=== PATIENT | female | born 1965 | race Caucasian/White ===

== ENCOUNTER → 2016-09-03 | Outpatient (CLI) | payer BC ==
--- NOTE | 2016-09-03 15:49 | REPMRS ---
Patient History The patient states she had a clinical breast exam in 09/08 No known family history of cancer. Retro-pectoral saline implants in both breasts. Digital Woman Screen Mammo: September 03, 2016 - Exam #: [id number] Bilateral CC and MLO view(s) were taken. Technologist: Beverly Mosquera, Technologist Prior study comparison: August 23, 2015, digital woman screen mammo performed at [facility] to [facility]. June 16, 2014, digital woman screen mammo performed at [facility] to [facility]. FINDINGS: There are scattered fibroglandular densities. There is a fairly symmetric fibroglandular pattern in both breasts. There has been no interval development of masses, areas of architectural distortion or clusters of microcalcifications typical of malignancy. ASSESSMENT: BI-RADS/ACR category 2 mammogram. Benign finding(s). Recommendation Routine screening mammogram of both breasts in 1 year (for women over age 40). This mammogram was interpreted with the aid of an FDA-approved computer-aided dectection system. Electronically Signed By: Robert Gloria MD 09/03/16 1219
== END ==
LOC: M WHC 14:28
PROVIDERS: ATTEND Nurse Practitioner Women's Health
DX: Z12.31 Encounter for screening mammogram for malignant neoplasm of breast (principal)

== ENCOUNTER → 2016-09-03 | Outpatient (REF) | payer BC | LOC: M SFHCWAGY 14:46 | PROVIDERS: ATTEND Nurse Practitioner Women's Health | DX: Z12.4 Encounter for screening for malignant neoplasm of cervix (principal) ==

== ENCOUNTER → 2016-10-21 | Outpatient (REF) | payer BC ==
[2016-10-21 11:25] LABS: BASO % 0.3 % (0.0-1.0); EOS # 0.2 K/mm3 (0.0-0.50); EOS % 4.9 % (0.0-3.0); LARGE UNSTAINED CELL # 0.1 K/mm3 (0.0-0.4); LARGE UNSTAINED CELL % 2.9 % (0.0-4.0); LYMPH % 23.2 % (24.0-44.0); MEAN CORPUSCULAR HEMOGLOBIN 33.1 pg (27.0-33.0); MEAN CORPUSCULAR HGB CONC 34.8 g/dl (32.0-36.5); MEAN CORPUSCULAR VOLUME 95.1 fl (80.0-96.0); MONO # 0.3 K/mm3 (0.0-0.8); MONO % 6.6 % (0.0-5.0); NEUTROPHILS # 2.8 K/mm3 (1.8-7.7); NEUTROPHILS % 62.1 % (36.0-66.0); PLATELET COUNT, AUTOMATED 265 k/mm3 (150-450); RED CELL DISTRIBUTION WIDTH 12.7 % (11.5-14.5); WHITE BLOOD COUNT 4.5 K/mm3 (4.0-10.0)
[2016-10-21 11:48] LABS: ALBUMIN 3.6 GM/DL (3.2-5.2); ALBUMIN/GLOBULIN RATIO 1.29 (1.00-1.93); ALKALINE PHOSPHATASE 74 U/L (45-117); ALT/SGPT 23 U/L (12-78); ANION GAP 8 MEQ/L (8-16); AST/SGOT 27 U/L (15-37); BILIRUBIN,TOTAL 1.3 MG/DL (0.2-1.0); BLOOD UREA NITROGEN 13 MG/DL (7-18); CALCIUM LEVEL 9.3 MG/DL (8.5-10.1); CARBON DIOXIDE LEVEL 27 MEQ/L (21-32); CHLORIDE LEVEL 109 MEQ/L (98-107); CHOLESTEROL LEVEL 170 MG/DL (<200); CREATININE FOR GFR 0.61 MG/DL (0.55-1.02); FREE T4 1.41 NG/DL (0.76-1.46); GLOMERULAR FILTRATION RATE > 60.0 (>51); GLUCOSE, FASTING 80 MG/DL (70-105); POTASSIUM SERUM 4.1 MEQ/L (3.5-5.1); SODIUM LEVEL 144 MEQ/L (136-145); TOTAL PROTEIN 6.4 GM/DL (6.4-8.2); TRIGLYCERIDES LEVEL 91 MG/DL (<150)
== END ==
LOC: M LABDRAW1 10:45
PROVIDERS: ATTEND Family Medicine
DX: K21.9 Gastro-esophageal reflux disease without esophagitis (principal); Z13.220 Encounter for screening for lipoid disorders; Z13.29 Encounter for screening for other suspected endocrine disorder; E89.0 Postprocedural hypothyroidism

== ENCOUNTER → 2017-09-04 | Outpatient (REF) | payer BC | LOC: M SFHCWAGY 15:22 | DX: Z12.4 Encounter for screening for malignant neoplasm of cervix (principal) | CPT/HCPCS: G0123 ==

== ENCOUNTER → 2017-09-04 | Outpatient (CLI) | payer BC | LOC: M WHC 14:44 | DX: Z12.31 Encounter for screening mammogram for malignant neoplasm of breast (principal); Z78.0 Asymptomatic menopausal state; Z98.82 Breast implant status ==

== ENCOUNTER → 2017-10-01 | Outpatient (CLI) | payer BC | LOC: M WHC 10:54 | DX: D25.9 Leiomyoma of uterus, unspecified (principal) | CPT/HCPCS: 76830 ==

== ENCOUNTER → 2017-10-05 | Outpatient (REF) | payer BC | LOC: M SFHCWAGY 09:44 | DX: N95.0 Postmenopausal bleeding (principal) | CPT/HCPCS: 88304 ==

== ENCOUNTER → 2018-03-30 | Outpatient (REF) | payer BC ==
[2018-03-30 14:41] LABS: BASO % 0.2 % (0.0-1.0); EOS # 0.3 10^3/uL (0.0-0.50); EOS % 6.4 % (0.0-3.0); HEMOGLOBIN 15.9 g/dl (12.0-15.5); IMMATURE GRANULOCYTE % 0.2 % (0-3.0); LYMPH # 1.3 10^3/uL (1.5-4.5); LYMPH % 27.5 % (24.0-44.0); MEAN CORPUSCULAR HEMOGLOBIN 32.1 pg (27.0-33.0); MEAN CORPUSCULAR HGB CONC 35.3 g/dl (32.0-36.5); MEAN CORPUSCULAR VOLUME 90.7 fl (80.0-96.0); MONO # 0.5 10^3/uL (0.0-0.8); MONO % 9.5 % (0.0-5.0); NEUTROPHILS # 2.7 10^3/uL (1.8-7.7); NEUTROPHILS % 56.2 % (36.0-66.0); PLATELET COUNT, AUTOMATED 281 10^3/uL (150-450); RED BLOOD COUNT 4.96 10^6/uL (4.00-5.40); RED CELL DISTRIBUTION WIDTH 12.2 % (11.5-14.5); WHITE BLOOD COUNT 4.7 10^3/uL (4.0-10.0)
[2018-03-30 14:55] LABS: ALBUMIN 4.2 GM/DL (3.2-5.2); ALBUMIN/GLOBULIN RATIO 1.56 (1.00-1.93); ALKALINE PHOSPHATASE 94 U/L (45-117); ALT/SGPT 21 U/L (12-78); ANION GAP 9 MEQ/L (8-16); AST/SGOT 21 U/L (7-37); BLOOD UREA NITROGEN 16 MG/DL (7-18); CARBON DIOXIDE LEVEL 30 MEQ/L (21-32); CHLORIDE LEVEL 103 MEQ/L (98-107); CHOLESTEROL LEVEL 204 MG/DL (<200); CHOLESTEROL RISK RATIO 2.794 (<5); CREATININE FOR GFR 0.59 MG/DL (0.55-1.30); FREE T4 1.38 NG/DL (0.76-1.46); GLOMERULAR FILTRATION RATE > 60.0 (>51); GLUCOSE, FASTING 77 MG/DL (70-100); HDL CHOLESTEROL 73 MG/DL (>40); LDL CHOLESTEROL 111 MG/DL (<100); NON-HDL-C 131 MG/DL; POTASSIUM SERUM 4.2 MEQ/L (3.5-5.1); SODIUM LEVEL 142 MEQ/L (136-145); THYROID STIMULATING HORMONE 0.156 uIU/ML (0.358-3.740); TOTAL PROTEIN 6.9 GM/DL (6.4-8.2); TRIGLYCERIDES LEVEL 102 MG/DL (<150)
== END ==
LOC: M LABDRAW1 13:42
DX: E89.0 Postprocedural hypothyroidism (principal); Z13.220 Encounter for screening for lipoid disorders; Z13.0 Encounter for screening for diseases of the blood and blood-forming organs and certain disorders involving the immune mechanism; Z13.29 Encounter for screening for other suspected endocrine disorder
CPT/HCPCS: 84443

== ENCOUNTER → 2018-04-06 | Outpatient (REF) | payer BC ==
[2018-04-06 13:55] LABS: ALBUMIN 4.1 GM/DL (3.2-5.2); ALBUMIN/GLOBULIN RATIO 1.28 (1.00-1.93); ALKALINE PHOSPHATASE 100 U/L (45-117); ALT/SGPT 23 U/L (12-78); ANION GAP 8 MEQ/L (8-16); AST/SGOT 15 U/L (7-37); BILIRUBIN,DIRECT 0.4 MG/DL (0.0-0.2); BILIRUBIN,TOTAL 2.8 MG/DL (0.2-1.0); BLOOD UREA NITROGEN 16 MG/DL (7-18); CALCIUM LEVEL 9.8 MG/DL (8.5-10.1); CARBON DIOXIDE LEVEL 29 MEQ/L (21-32); CHLORIDE LEVEL 104 MEQ/L (98-107); CREATININE FOR GFR 0.72 MG/DL (0.55-1.30); FREE T4 1.35 NG/DL (0.76-1.46); GAMMA GLUTAMYLTRANSPEPTIDASE 24 U/L (5-55); GLOMERULAR FILTRATION RATE > 60.0 (>51); GLUCOSE, FASTING 79 MG/DL (70-100); SODIUM LEVEL 141 MEQ/L (136-145); THYROID STIMULATING HORMONE 0.268 uIU/ML (0.358-3.740); TOTAL PROTEIN 7.3 GM/DL (6.4-8.2)
[2018-04-07 10:15] LABS: HEPATITIS B SURFACE ANTIGEN NEGATIVE (NEGATIVE)
[2018-04-07 10:42] LABS: HEPATITIS B CORE ANTIBODY IGM NEGATIVE (NEGATIVE); HEPATITIS C VIRUS ABY INDEX 0.1 INDEX (<0.8)
[2018-04-07 10:45] LABS: HEPATITIS A ANTIBODY IGM NEGATIVE (NEGATIVE)
== END ==
LOC: M LABDRAW1 12:39
DX: R94.5 Abnormal results of liver function studies (principal); I10 Essential (primary) hypertension; E89.0 Postprocedural hypothyroidism
CPT/HCPCS: 82248

== ENCOUNTER → 2018-04-14 | Outpatient (CLI) | payer BC | LOC: M RAD 06:19 | DX: R94.5 Abnormal results of liver function studies (principal); K76.89 Other specified diseases of liver | CPT/HCPCS: 76705 ==

== ENCOUNTER → 2018-05-10 | Outpatient (REF) | payer BC ==
[2018-05-10 12:39] LABS: ALBUMIN 4.1 GM/DL (3.2-5.2); ALT/SGPT 23 U/L (12-78); BILIRUBIN,TOTAL 2.7 MG/DL (0.2-1.0); BLOOD UREA NITROGEN 18 MG/DL (7-18); CALCIUM LEVEL 9.5 MG/DL (8.5-10.1); CARBON DIOXIDE LEVEL 30 MEQ/L (21-32); CHLORIDE LEVEL 102 MEQ/L (98-107); CREATININE FOR GFR 0.66 MG/DL (0.55-1.30); FREE T4 1.27 NG/DL (0.76-1.46); GLOMERULAR FILTRATION RATE > 60.0 (>51); GLUCOSE, FASTING 70 MG/DL (70-100); POTASSIUM SERUM 3.7 MEQ/L (3.5-5.1); SODIUM LEVEL 141 MEQ/L (136-145); THYROID STIMULATING HORMONE 0.181 uIU/ML (0.358-3.740); TOTAL PROTEIN 7.3 GM/DL (6.4-8.2)
== END ==
LOC: M LABDRAW1 11:52
PROVIDERS: ATTEND Physician Assistant
DX: R94.5 Abnormal results of liver function studies (principal); E89.0 Postprocedural hypothyroidism

== ENCOUNTER → 2018-08-27 | Outpatient (CLI) | payer BC ==
[2018-08-27 19:34] LABS: BLOOD UREA NITROGEN 19 MG/DL (7-18); CALCIUM LEVEL 9.3 MG/DL (8.5-10.1); CARBON DIOXIDE LEVEL 28 MEQ/L (21-32); CHLORIDE LEVEL 106 MEQ/L (98-107); CREATININE FOR GFR 0.72 MG/DL (0.55-1.30); FREE T4 1.26 NG/DL (0.76-1.46); GLOMERULAR FILTRATION RATE > 60.0 (>51); GLUCOSE, FASTING 83 MG/DL (70-100); POTASSIUM SERUM 3.9 MEQ/L (3.5-5.1); SODIUM LEVEL 140 MEQ/L (136-145)
== END ==
LOC: M WUC 17:58
PROVIDERS: ATTEND Physician Assistant
DX: E89.0 Postprocedural hypothyroidism (principal); I10 Essential (primary) hypertension

== ENCOUNTER → 2018-09-30 | Outpatient (CLI) | payer BC ==
--- NOTE | 2018-09-30 16:56 | REPMRS ---
Patient History The patient states she had a clinical breast exam in 09/2018. Patient is postmenopausal. No known family history of cancer. Retro-pectoral saline implants in both breasts, 2005. No Hormone Replacement Therapy 3D TOMOSYNTHESIS WAS PERFORMED. Digital Woman Screen Mammo: September 30, 2018 - Exam #: [id number] Bilateral CC and MLO view(s) were taken. Technologist: Alejandra Yip, Technologist Prior study comparison: September 04, 2017, digital woman screen mammo performed at [facility]. September 03, 2016, digital woman screen mammo performed at [facility]. FINDINGS: There are scattered fibroglandular densities. There has been no change in the appearance of the mammogram from the prior studies. There is a mild amount of residual fibroglandular tissue which is fairly symmetric. There is no interval development of dominant mass, architectural distortion, or clustered microcalcification suggestive of malignancy. Assessment: BI-RADS/ACR category 1 mammogram. Negative Mammogram. Recommendation Routine screening mammogram in 1 year (for women over age 40). This mammogram was interpreted with the aid of an FDA-approved computer-aided dectection system. Electronically Signed By: Robert Gloria MD 09/30/18 2194
== END ==
LOC: M WHC 15:22
PROVIDERS: ATTEND Nurse Practitioner Women's Health
DX: Z12.31 Encounter for screening mammogram for malignant neoplasm of breast (principal); Z78.0 Asymptomatic menopausal state; Z98.82 Breast implant status

== ENCOUNTER → 2019-02-03 | Outpatient (CLI) | payer BC ==
--- NOTE | 2019-02-05 08:06 | EEG ---
DATE OF PROCEDURE: 02/03/2019 REFERRING PHYSICIAN: Dr. Johnson DIAGNOSIS: MS. EEG NUMBER: [id number] HISTORY: The patient is a 54-year-old woman with history of migraines, hypertension and psoriasis. EEG was done to rule out MS, according to notes sent to our office. She is currently taking Synthroid, losartan, amitriptyline, ibuprofen etc. TECHNICAL DESCRIPTION: This digital EEG was recorded by 21-scalp, ear, and two EKG electrodes and was reviewed in bipolar and referential montages following reformatting in 10-20 international electrode placement system. INTERPRETATION: The patient was noted to be in awake and drowsy states during this EEG. Resting awake background rhythm consisted of well-formed posterior dominant rhythm with anterior/posterior gradient comprising of 11 Hz alpha activity measuring 15-60 microvolts in amplitude which was symmetric and reactive to eye opening. Attenuation of posterior dominant rhythm was seen during transition into drowsiness. Stage I and II sleep were reviewed and were symmetric bilaterally. Hyperventilation with good effort elicited mild theta slowing of background rhythm. Photic stimulation at 3-30 Hz elicited symmetric photic driving especially at mid frequencies. EKG revealed normal sinus rhythm. No focal, lateralizing, or epileptiform abnormalities were seen. No relevant clinical activity was noted. CONCLUSION: This EEG in awake, drowsy states, stage I and II sleep is within normal limits.
== END ==
LOC: M SLEEP 14:52
PROVIDERS: ATTEND Psychiatry & Neurology Neurology
DX: G35 Multiple sclerosis (principal)

== ENCOUNTER → 2019-11-18 | Outpatient (CLI) | payer BC ==
--- NOTE | 2019-11-18 10:30 | REPMRS ---
Patient History The patient states she has not had a clinical breast exam in over a year. No known family history of cancer. Retro-pectoral saline implants in both breasts, 2005. No Hormone Replacement Therapy Digital Woman Screen Mammo: November 18, 2019 - Exam #: [id number] Bilateral CC and MLO view(s) were taken. Technologist: Bailee Rouse, Technologist Prior study comparison: September 30, 2018, bilateral digital woman screen mammo performed at [facility]. September 04, 2017, digital woman screen mammo performed at [facility]. September 03, 2016, digital woman screen mammo performed at [facility]. FINDINGS: There are scattered fibroglandular densities. The visualized implant margins are smooth. Breast parenchymal density pattern is essentially symmetric. No dominant mass, grouped microcalcification, or architectural distortion is evident on either side. 3-D tomosynthesis shows no additional findings. No significant changes when compared with prior studies. Assessment: BI-RADS/ACR category 2 mammogram. Benign Findings. Recommendation Routine screening mammogram of both breasts in 1 year (for women over age 40). This patient's Lifetime Breast Cancer RIsk is estimated at 8.4 %. This mammogram was interpreted with the aid of an FDA-approved computer-aided dectection system. Electronically Signed By: William Murphy MD 11/18/19 0750
== END ==
LOC: M WHC 09:45
PROVIDERS: ATTEND Nurse Practitioner Women's Health
DX: Z12.31 Encounter for screening mammogram for malignant neoplasm of breast (principal)

== ENCOUNTER → 2019-12-15 | Outpatient (CLI) | payer BC ==
[2019-12-15 07:41] LABS: BASO % 0.2 % (0.0-1.0); EOS # 0.2 10^3/uL (0.0-0.5); HEMATOCRIT 43.4 % (36.0-47.0); HEMOGLOBIN 15.3 g/dl (12.0-15.5); LYMPH # 1.5 10^3/uL (1.5-5.0); LYMPH % 31.2 % (24.0-44.0); MEAN CORPUSCULAR HEMOGLOBIN 31.9 pg (27.0-33.0); MEAN CORPUSCULAR HGB CONC 35.3 g/dl (32.0-36.5); MEAN CORPUSCULAR VOLUME 90.4 fl (80.0-96.0); MONO # 0.4 10^3/uL (0.0-0.8); MONO % 8.4 % (0.0-5.0); NEUTROPHILS # 2.7 10^3/uL (1.5-8.5); PLATELET COUNT, AUTOMATED 257 10^3/uL (150-450); WHITE BLOOD COUNT 4.8 10^3/uL (4.0-10.0)
[2019-12-15 08:08] LABS: ALBUMIN 3.8 GM/DL (3.2-5.2); ALT/SGPT 21 U/L (12-78); BILIRUBIN,TOTAL 1.5 MG/DL (0.2-1.0); BLOOD UREA NITROGEN 9 MG/DL (7-18); CALCIUM LEVEL 9.5 MG/DL (8.5-10.1); CARBON DIOXIDE LEVEL 26 MEQ/L (21-32); CHLORIDE LEVEL 111 MEQ/L (98-107); CHOLESTEROL LEVEL 178 MG/DL (<200); CHOLESTEROL RISK RATIO 2.507 (<5); CREATININE FOR GFR 0.67 MG/DL (0.55-1.30); FREE T4 1.18 NG/DL (0.76-1.46); GLOMERULAR FILTRATION RATE > 60.0 (>51); GLUCOSE, FASTING 97 MG/DL (70-100); HDL CHOLESTEROL 71 MG/DL (>40); LDL CHOLESTEROL 89 MG/DL (<100); NON-HDL-C 107 MG/DL; SODIUM LEVEL 144 MEQ/L (136-145); TOTAL PROTEIN 6.6 GM/DL (6.4-8.2); TRIGLYCERIDES LEVEL 92 MG/DL (<150)
== END ==
LOC: M LAB 06:44
PROVIDERS: ATTEND Family Medicine
DX: E89.0 Postprocedural hypothyroidism (principal)

== ENCOUNTER → 2020-04-17 | Outpatient (CLI) | payer SELFPAY | LOC: M LABSMTC 12:57 | PROVIDERS: ATTEND Pediatrics | DX: Z20.828 Contact with and (suspected) exposure to other viral communicable diseases (principal) ==

== ENCOUNTER → 2020-04-30 | Outpatient (CLI) | payer SELFPAY | LOC: M LABSMTC 13:59 | PROVIDERS: ATTEND Pediatrics | DX: Z20.828 Contact with and (suspected) exposure to other viral communicable diseases (principal) ==

== ENCOUNTER → 2020-05-03 | Outpatient (CLI) | payer SELFPAY | LOC: M LABSMTC 10:10 | PROVIDERS: ATTEND Pediatrics | DX: Z20.828 Contact with and (suspected) exposure to other viral communicable diseases (principal) ==

== ENCOUNTER → 2020-12-13 | Outpatient (CLI) | payer BC ==
[2020-12-13 12:26] LABS: EOS # 0.1 10^3/uL (0.0-0.5); EOS % 2.5 % (0.0-3.0); HEMOGLOBIN 16.1 g/dl (12.0-15.5); LYMPH # 1.3 10^3/uL (1.5-5.0); LYMPH % 24.5 % (24.0-44.0); MEAN CORPUSCULAR HEMOGLOBIN 32.5 pg (27.0-33.0); MEAN CORPUSCULAR VOLUME 92.7 fl (80.0-96.0); MONO # 0.5 10^3/uL (0.0-0.8); MONO % 9.2 % (2.0-8.0); NEUTROPHILS # 3.3 10^3/uL (1.5-8.5); NEUTROPHILS % 63.6 % (36.0-66.0); PLATELET COUNT, AUTOMATED 275 10^3/uL (150-450); RED BLOOD COUNT 4.96 10^6/uL (4.00-5.40); WHITE BLOOD COUNT 5.2 10^3/uL (4.0-10.0)
[2020-12-13 12:50] LABS: ALT/SGPT 26 U/L (12-78); BLOOD UREA NITROGEN 13 MG/DL (7-18); CALCIUM LEVEL 9.6 MG/DL (8.5-10.1); CARBON DIOXIDE LEVEL 30 MEQ/L (21-32); CHLORIDE LEVEL 106 MEQ/L (98-107); CHOLESTEROL LEVEL 183 MG/DL (<200); CREATININE FOR GFR 0.61 MG/DL (0.55-1.30); GLOMERULAR FILTRATION RATE > 60.0 (>51); GLUCOSE, FASTING 76 MG/DL (70-100); HDL CHOLESTEROL 78 MG/DL (>40); POTASSIUM SERUM 4.3 MEQ/L (3.5-5.1); SODIUM LEVEL 140 MEQ/L (136-145); TRIGLYCERIDES LEVEL 63 MG/DL (<150)
[2020-12-13 12:51] LABS: ALBUMIN 4.3 GM/DL (3.2-5.2); CHOLESTEROL RISK RATIO 2.346 (<5); FREE T4 1.32 NG/DL (0.76-1.46); LDL CHOLESTEROL 92 MG/DL (<100); NON-HDL-C 105 MG/DL; TOTAL PROTEIN 7.2 GM/DL (6.4-8.2)
== END ==
LOC: M LAB 11:06
PROVIDERS: ATTEND Family Medicine
DX: E89.0 Postprocedural hypothyroidism (principal); Z13.29 Encounter for screening for other suspected endocrine disorder; Z13.220 Encounter for screening for lipoid disorders; Z13.0 Encounter for screening for diseases of the blood and blood-forming organs and certain disorders involving the immune mechanism

== ENCOUNTER → 2021-01-26 | Outpatient (REF) | LOC: M LABSMTC 11:03 | PROVIDERS: ATTEND Pediatrics | DX: Z20.822 Contact with and (suspected) exposure to COVID-19 (principal) ==

== ENCOUNTER → 2021-02-14 | Outpatient (REF) | LOC: M LABSMTC 10:25 | PROVIDERS: ATTEND Pediatrics | DX: Z11.52 Encounter for screening for COVID-19 (principal) ==

== ENCOUNTER 2021-02-18 07:40 | Emergency (ER) | payer BC ==
[~2021-02-18] VITALS: Ht 154.9 cm; Wt 73.6 kg
[2021-02-18 08:29] LABS: BASO % 0.2 % (0.0-1.0); EOS # 0.1 10^3/uL (0.0-0.5); EOS % 2.4 % (0.0-3.0); HEMATOCRIT 44.6 % (36.0-47.0); HEMOGLOBIN 15.7 g/dl (12.0-15.5); LYMPH # 1.2 10^3/uL (1.5-5.0); LYMPH % 22.5 % (24.0-44.0); MEAN CORPUSCULAR HEMOGLOBIN 32.4 pg (27.0-33.0); MEAN CORPUSCULAR HGB CONC 35.2 g/dl (32.0-36.5); MONO # 0.5 10^3/uL (0.0-0.8); MONO % 9.9 % (2.0-8.0); NEUTROPHILS # 3.4 10^3/uL (1.5-8.5); NEUTROPHILS % 64.6 % (36.0-66.0); PLATELET COUNT, AUTOMATED 184 10^3/uL (150-450); RED BLOOD COUNT 4.85 10^6/uL (4.00-5.40); WHITE BLOOD COUNT 5.3 10^3/uL (4.0-10.0)
--- NOTE | 2021-02-18 08:52 | REP ---
INDICATION: DYSPNEA/COUGH. COMPARISON: None. TECHNIQUE: Portable FINDINGS: The technique utilized in obtaining the radiograph has magnified the cardiac silhouette and accentuated the interstitial markings. The superior mediastinal structures are midline. The cardiac silhouette is unremarkable in size, shape, and position. The diaphragmatic surfaces of the lungs are regular, and the costophrenic angles are clear. The pulmonary palomino are clear. The imaged osseous structures are intact. IMPRESSION: There is no acute cardiopulmonary disease. <Electronically signed by Sarabjit Medellin > 02/18/21 [id number]
[2021-02-18 09:01] LABS: BLOOD UREA NITROGEN 9 MG/DL (7-18); CALCIUM LEVEL 9.2 MG/DL (8.5-10.1); CARBON DIOXIDE LEVEL 27 MEQ/L (21-32); CHLORIDE LEVEL 106 MEQ/L (98-107); CREATININE FOR GFR 0.71 MG/DL (0.55-1.30); GLOMERULAR FILTRATION RATE > 60.0 (>51); GLUCOSE, FASTING 105 MG/DL (70-100); POTASSIUM SERUM 3.4 MEQ/L (3.5-5.1); SODIUM LEVEL 142 MEQ/L (136-145)
[2021-02-18] MEDS ORDERED: SYNT112T2 PO (09:19)
[2021-02-18] MEDS ORDERED: ASPI81CH33 PO (09:19)
[2021-02-18] MEDS ORDERED: AMIT25TA17 PO (09:19)
[2021-02-18] MEDS ORDERED: LOSA50TA88 PO (09:19)
[2021-02-18] MEDS ORDERED: EMGA120I SUBQ (09:19)
[2021-02-18 11:33] VITALS: BP 153/88
--- NOTE | 2021-02-19 04:49 | ECGEPIP ---
[facility] - ED Test Date: 2021-02-18 Pat Name: BECKA CHOWDHURY Department: Room: - Gender: Female Coil Tester: Tanner ESPINAL : 1965 Requested By: Jong Castrejon Order Number: [id number] Reading MD: Rodolfo Collins Measurements Intervals [place] Rate: 95 P: 65 [place]: 148 QRS: 76 QRSD: 82 T: 37 QT: 352 QTc: 442 Interpretive Statements Normal sinus rhythm Comparison tracing not on file Electronically Signed on 02-19-2021 4:48:53 EDT by Rodolfo Collins
== END 2021-02-18 11:49 | disposition home or self-care (01) ==
LOC: M ED 07:40
DX: R06.2 Wheezing (principal); U07.1 COVID-19; I10 Essential (primary) hypertension; J45.909 Unspecified asthma, uncomplicated; Z88.1 Allergy status to other antibiotic agents; Z79.899 Other long term (current) drug therapy; Z79.82 Long term (current) use of aspirin; Z79.890 Hormone replacement therapy

== ENCOUNTER 2021-02-18 12:12 | Outpatient (CLI) | payer BC ==
[2021-02-18 11:59] VITALS: BP 122/82
[~2021-02-18 12:12] MED LIST: ALBUTEROL 90 MCG/ACT 8GM HFA INHALER INH PRN; ALBUTEROL SULFATE 2.5 MG/0.5 ML INH NEB SOLN INH PRN; AMIT25TA17 PO; ASPI81CH33 PO; CASIRIVIMAB/IMDEVIMAB 1,200 MG in NS 250 ML IV ONE; EMGA120I SUBQ; EPINEPHrine INJ 1 MG/ML 1ML AMP IM PRN; LOSA50TA88 PO; NS 1,000 ML IV SCH; SYNT112T2 PO; diphenhydrAMINE 50MG/ML VIAL (J1200) IV PRN; methylPREDNISolone 125MG 2ML VIAL IV PRN
[2021-02-18 12:36] VITALS: BP 133/77
[2021-02-18 13:03] VITALS: BP 130/78
[2021-02-18 13:34] VITALS: BP 125/84
[2021-02-18 14:01] VITALS: BP 115/79
[2021-02-18 15:04] VITALS: BP 120/74
--- NOTE | 2021-02-18 17:44 | HPEPDOC ---
[facility] Medical History & Physical Date of Admission Feb 18, 2021 Date of Service: Feb 18, 2021 Primary Care Physician: TAVO ASHTON DO Attending Physician: PADMINI DOE DO History and Physical CHIEF COMPLAINT: Symptomatic COVID-19 infection HISTORY OF PRESENT ILLNESS: Approximately 1 week ago the patient's became Covid positive after being exposed to a Covid positive child. Now, approximately 5 days ago she also became symptomatic with sore throat, wheezing, dry cough, shortness of breath/difficulty breathing. She did have asthma as a child, and does on occasion continue to use rescue inhaler, but this is very infrequently. Additionally she does have a BMI greater than 25 and hypertension. She also tested positive for Covid, but she is not requiring oxygen, nor does she qualify for inpatient admission at this time. Therefore, given her comorbidities she does qualify for monoclonal antibodies. The risks and benefits were discussed with her, she does consent, and signed paperwork indicating that she would like to receive them. PAST MEDICAL HISTORY: Migraines Hypertension Hypothyroidism Obesity History of childhood asthma, with infrequent exacerbations as an adult PAST SURGICAL HISTORY: Bilateral breast augmentation 2 REVIEW OF SYSTEMS: As listed in HPI PHYSICAL EXAMINATION: General: Awake, alert, oriented x3. She is saturating well on room air. HEENT: Head normocephalic atraumatic, conjunctiva are pink, sclera are nonicteric. Hearing is grossly intact to conversation. Respiratory: Minimal expiratory wheeze noted Cardiovascular: Regular rate and rhythm, with no rubs, gallops, or murmur. ASSESSMENT/PLAN: Symptomatic COVID-19 infection Hypertension Obesity History of asthma -Administer monoclonal antibodies Vital Signs Vital Signs Date Time Temp Pulse Resp B/P (MAP) Pulse Ox O2 Delivery O2 Flow Rate FiO2 02/18/21 15:04 98.8 99 18 120/74 (89) 99 02/18/21 14:01 Room Air Home Medications Scheduled Amitriptyline HCl (Amitriptyline HCl) 25 Mg Tablet, 1 TAB PO DAILY Aspirin (Aspirin) 81 Mg Tab.chew, 1 TAB PO DAILY for pain Levothyroxine Sodium (Synthroid) 112 Mcg Tablet, 1 TAB PO DAILY Losartan Potassium (Losartan Potassium) 50 Mg Tablet, 1 TAB PO DAILY Scheduled PRN Galcanezumab-Gnlm (Emgality Pen) 120 Mg/1 Ml Pen.injctr, SUBQ PRN PRN for HEADACHE or MILD DISCOMFORT Allergies Coded Allergies: cephalexin (Verified Allergy, Mild, ITCHY PALMS AND FEET, 05/21/20) A-FIB/CHADSVASC A-FIB History Current/History of A-Fib/PAF?: No PADMINI DOE DO Feb 18, 2021 17:44
== END 2021-02-18 15:15 | disposition home or self-care (01) ==
LOC: M OPCLI4 12:12 → M 4MAIN 12:12 → M OPCLI4 15:15
PROVIDERS: ATTEND Neuromusculoskeletal Medicine & OMM
DX: U07.1 COVID-19 (principal); J45.909 Unspecified asthma, uncomplicated; Z88.8 Allergy status to other drugs, medicaments and biological substances

== ENCOUNTER → 2021-07-25 | Outpatient (REF) ==
[~2021-07-25] MED LIST changes: -ALBUTEROL 90 MCG/ACT 8GM HFA INHALER INH PRN; -ALBUTEROL SULFATE 2.5 MG/0.5 ML INH NEB SOLN INH PRN; -CASIRIVIMAB/IMDEVIMAB 1,200 MG in NS 250 ML IV ONE; -EPINEPHrine INJ 1 MG/ML 1ML AMP IM PRN; +LOSA50TA28 PO; -LOSA50TA88 PO; -NS 1,000 ML IV SCH; -diphenhydrAMINE 50MG/ML VIAL (J1200) IV PRN; -methylPREDNISolone 125MG 2ML VIAL IV PRN
== END ==
LOC: M LABSMTC 10:26
PROVIDERS: ATTEND Family Medicine
DX: Z11.52 Encounter for screening for COVID-19 (principal)

== ENCOUNTER → 2022-01-02 | Outpatient (CLI) | payer BC ==
[2022-01-02 15:01] LABS: BASO % 0.3 % (0.0-1.0); EOS # 0.1 10^3/uL (0.0-0.5); EOS % 1.5 % (0.0-3.0); HEMATOCRIT 43.5 % (36.0-47.0); HEMOGLOBIN 15.2 g/dl (12.0-15.5); LYMPH # 1.2 10^3/uL (1.5-5.0); LYMPH % 20.3 % (24.0-44.0); MEAN CORPUSCULAR HEMOGLOBIN 31.9 pg (27.0-33.0); MEAN CORPUSCULAR HGB CONC 34.9 g/dl (32.0-36.5); MEAN CORPUSCULAR VOLUME 91.2 fl (80.0-96.0); MONO # 0.5 10^3/uL (0.0-0.8); NEUTROPHILS % 68.6 % (36.0-66.0); PLATELET COUNT, AUTOMATED 257 10^3/uL (150-450); RED BLOOD COUNT 4.77 10^6/uL (4.00-5.40); WHITE BLOOD COUNT 5.8 10^3/uL (4.0-10.0)
[2022-01-02 18:33] LABS: ALBUMIN 4.2 GM/DL (3.2-5.2); ALT/SGPT 25 U/L (12-78); BILIRUBIN,TOTAL 1.9 MG/DL (0.2-1.0); BLOOD UREA NITROGEN 7 MG/DL (7-18); CARBON DIOXIDE LEVEL 25 MEQ/L (21-32); CHLORIDE LEVEL 103 MEQ/L (98-107); CHOLESTEROL LEVEL 172 MG/DL (<200); CHOLESTEROL RISK RATIO 2.457 (<5); CREATININE FOR GFR 0.61 MG/DL (0.55-1.30); FREE T4 1.37 NG/DL (0.76-1.46); GLOMERULAR FILTRATION RATE > 60.0 (>51); GLUCOSE, FASTING 80 MG/DL (70-100); HDL CHOLESTEROL 70 MG/DL (>40); LDL CHOLESTEROL 85 MG/DL (<100); NON-HDL-C 102 MG/DL; POTASSIUM SERUM 3.8 MEQ/L (3.5-5.1); SODIUM LEVEL 137 MEQ/L (136-145); THYROID STIMULATING HORMONE 0.209 uIU/ML (0.358-3.740); TOTAL PROTEIN 6.9 GM/DL (6.4-8.2); TRIGLYCERIDES LEVEL 84 MG/DL (<150)
[2022-01-02 19:30] LABS: TOTAL 25(OH) VITAMIN D 48.9 NG/ML (30.0-100.0)
== END ==
LOC: M LAB 14:00
PROVIDERS: ATTEND Family Medicine
DX: E89.0 Postprocedural hypothyroidism (principal); Z13.29 Encounter for screening for other suspected endocrine disorder; Z13.220 Encounter for screening for lipoid disorders; Z13.0 Encounter for screening for diseases of the blood and blood-forming organs and certain disorders involving the immune mechanism

== ENCOUNTER → 2023-01-28 | Outpatient (CLI) | payer BC ==
[~2023-01-28] MED LIST changes: -AMIT25TA17 PO; +AMIT25TA19 PO
== END ==
LOC: M WUC 14:28
PROVIDERS: ATTEND Physician Assistant
DX: R07.81 Pleurodynia (principal)

== ENCOUNTER → 2023-03-30 | Outpatient (CLI) | payer BC ==
[2023-03-30 12:07] LABS: FREE T4 1.43 NG/DL (0.89-1.76); THYROID STIMULATING HORMONE 0.08 uIU/ML (0.55-4.78)
== END ==
LOC: M LAB 11:00
PROVIDERS: ATTEND Family Medicine
DX: E89.0 Postprocedural hypothyroidism (principal)

== ENCOUNTER → 2023-05-04 | Outpatient (REF) ==
[2023-05-04 10:45] LABS: RSV AMPLIFICATION NEGATIVE (NEGATIVE)
== END ==
LOC: M EMP 08:34
PROVIDERS: ATTEND Family Medicine
DX: Z11.52 Encounter for screening for COVID-19 (principal)

== ENCOUNTER → 2023-08-03 | Outpatient (CLI) | payer BC ==
[2023-08-03 14:02] LABS: FREE T4 1.48 NG/DL (0.89-1.76); THYROID STIMULATING HORMONE 0.128 uIU/ML (0.55-4.78)
== END ==
LOC: M LAB 13:07
PROVIDERS: ATTEND Nurse Practitioner Adult Health
DX: E89.0 Postprocedural hypothyroidism (principal)

== ENCOUNTER → 2023-09-24 | Outpatient (CLI) | payer BC ==
[2023-09-24 12:14] LABS: FREE T4 1.19 NG/DL (0.89-1.76); THYROID STIMULATING HORMONE 2.531 uIU/ML (0.55-4.78)
== END ==
LOC: M LAB 11:08
PROVIDERS: ATTEND Nurse Practitioner Adult Health
DX: E89.0 Postprocedural hypothyroidism (principal)

== ENCOUNTER 2023-12-13 04:43 | Emergency (ER) | payer BC ==
[~2023-12-13] VITALS: Ht 154.9 cm; Wt 66.9 kg
[2023-12-13 04:44] VITALS: BP 139/89; TEMP 98.4; O2SAT 98
[2023-12-13] MEDS ORDERED: TETRACAINE 0.5% OPHTH SOLN 4ML As Ordered ONE (05:04)
[2023-12-13] MEDS: TETRACAINE 0.5% OPHTH SOLN 4ML OS ONE (05:08)
[2023-12-13] MEDS: FLUORESCEIN OPHTH 1MG STRIP OS ONE (06:10)
[2023-12-13] MEDS ORDERED: ERYT5OIN25 OS (06:21)
[2023-12-13] MEDS: ERYTHROMYCIN OPHTH OINT OS ONE (06:30)
== END 2023-12-13 06:31 | disposition home or self-care (01) ==
LOC: M ED 04:43
DX: H18.822 Corneal disorder due to contact lens, left eye (principal); I10 Essential (primary) hypertension; Z88.1 Allergy status to other antibiotic agents; Z79.1 Long term (current) use of non-steroidal anti-inflammatories (NSAID); Z79.2 Long term (current) use of antibiotics; Z79.899 Other long term (current) drug therapy

== ENCOUNTER 2024-02-24 21:57 | Emergency (ER) | payer BC ==
[~2024-02-24] VITALS: Ht 154.9 cm; Wt 64.6 kg
[~2024-02-24 21:57] MED LIST changes: +ERYT5OIN25 OS
[2024-02-24] MEDS ORDERED: SYNT100T PO (22:17)
[2024-02-24] MEDS ORDERED: ASPI-1 PO (22:17)
[2024-02-24] MEDS ORDERED: PHEN37.58 PO (22:17)
[2024-02-24] MEDS ORDERED: BUPR150T12 PO (22:17)
[2024-02-24] MEDS ORDERED: HYDR12.55 PO (22:17)
[2024-02-24 22:31] LABS: BASO % 0.3 % (0.0-1.0); EOS # 0.3 10^3/uL (0.0-0.5); EOS % 4.6 % (0.0-3.0); HEMATOCRIT 41.9 % (36.0-47.0); HEMOGLOBIN 15.1 g/dl (12.0-15.5); LYMPH # 2.1 10^3/uL (1.5-5.0); LYMPH % 30.7 % (24.0-44.0); MEAN CORPUSCULAR HEMOGLOBIN 33.3 pg (27.0-33.0); MEAN CORPUSCULAR VOLUME 92.3 fl (80.0-96.0); MONO # 0.6 10^3/uL (0.0-0.8); MONO % 9.1 % (2.0-8.0); NEUTROPHILS # 3.8 10^3/uL (1.5-8.5); PLATELET COUNT, AUTOMATED 272 10^3/uL (150-450); RED BLOOD COUNT 4.54 10^6/uL (4.00-5.40)
[2024-02-24 22:55] LABS: CK-MB VALUE MASS < 1.0 NG/ML (<3.6)
[2024-02-24 22:58] LABS: BLOOD UREA NITROGEN 10 MG/DL (9-23); CALCIUM LEVEL 10.3 MG/DL (8.5-10.1); CARBON DIOXIDE LEVEL 29 MMOL/L (20-31); CHLORIDE LEVEL 108 MMOL/L (98-107); CREATININE FOR GFR 0.62 MG/DL (0.55-1.30); GLOMERULAR FILTRATION RATE > 60.0 (>51); GLUCOSE, FASTING 73 MG/DL (60-100); POTASSIUM SERUM 3.9 MMOL/L (3.5-5.1); SODIUM LEVEL 141 MMOL/L (136-145)
[2024-02-24 22:59] LABS: THYROID STIMULATING HORMONE 2.192 uIU/ML (0.55-4.78)
[2024-02-24 23:00] LABS: FREE T4 1.42 NG/DL (0.89-1.76)
[2024-02-24 23:02] LABS: CPK CREATINE PHOSPHOKINASE 80 U/L (34-145); MB/CK RELATIVE INDEX 1.25 (< OR =4)
[2024-02-24] MEDS: KETOROLAC 30 MG/ML 1ML VIAL IV ONE (23:21)
[2024-02-25 00:16] LABS: CK-MB VALUE MASS < 1.0 NG/ML (<3.6)
[2024-02-25 00:41] LABS: CPK CREATINE PHOSPHOKINASE 63 U/L (34-145); MB/CK RELATIVE INDEX 1.58 (< OR =4)
[2024-02-25] MEDS: HYOSCYAMINE SULFATE 0.125 MG SUBL TABLET PO ONE (00:57)
[2024-02-25] MEDS: MAALOX 30 ML SUSP *UDC PO ONE (00:58)
[2024-02-25 01:00] VITALS: BP 137/88; TEMP 97.1; O2SAT 96
== END 2024-02-25 01:04 | disposition home or self-care (01) ==
LOC: M ED 21:57
DX: R07.89 Other chest pain (principal); I10 Essential (primary) hypertension; E03.9 Hypothyroidism, unspecified; F10.10 Alcohol abuse, uncomplicated; Z88.1 Allergy status to other antibiotic agents; Z79.1 Long term (current) use of non-steroidal anti-inflammatories (NSAID); Z79.899 Other long term (current) drug therapy
CPT/HCPCS: 71045; 80048; 82550; 82553; 83880; 84439; 84443; 84484; 85025; 93005; 93041; 94760; 96374; 99285; J1885

== ENCOUNTER → 2024-12-13 | Outpatient (REF) ==
[~2024-12-13] MED LIST changes: +ASPI-1 PO; +BUPR150T12 PO; +HYDR12.55 PO; +PHEN37.58 PO; +SYNT100T PO
[2024-12-13 09:38] LABS: SOFIA COVID ANTIGEN NEGATIVE (NEGATIVE)
== END ==
LOC: M EMP 08:59
PROVIDERS: ATTEND Family Medicine
DX: Z11.52 Encounter for screening for COVID-19 (principal)

== ENCOUNTER → 2025-05-03 | Outpatient (REF) ==
[2025-05-03 12:45] LABS: SOFIA COVID ANTIGEN NEGATIVE (NEGATIVE)
== END ==
LOC: M EMP 10:54
PROVIDERS: ATTEND Family Medicine
DX: Z11.52 Encounter for screening for COVID-19 (principal)